=== PATIENT | female | born 1955 | race Caucasian/White ===

== ENCOUNTER 2018-09-02 13:43 | Inpatient (IN) | payer OTHER ==
[~2018-09-02] VITALS: Ht 157.5 cm; Wt 68.0 kg
== END 2018-10-04 20:05 | disposition home or self-care (01) | DRG 330 ==
LOC: SURH 10-01 07:30 → O/R 10-01 08:30 → SURH 10-01 10:30
PROVIDERS: ADMIT Colon & Rectal Surgery
PROC: 07TC4ZZ Resection of Pelvis Lymphatic, Percutaneous Endoscopic Approach (ICD-10-PCS; 2018-10-01)
PROC: 0D1B4Z4 Bypass Ileum to Cutaneous, Percutaneous Endoscopic Approach (ICD-10-PCS; 2018-10-01)
PROC: 4A12X4Z Monitoring of Cardiac Electrical Activity, External Approach (ICD-10-PCS; 2018-10-01)
PROC: 0DTN4ZZ Resection of Sigmoid Colon, Percutaneous Endoscopic Approach (ICD-10-PCS; principal; 2018-10-01 10:30)
DX: C19 Malignant neoplasm of rectosigmoid junction (principal); D62 Acute posthemorrhagic anemia; G47.33 Obstructive sleep apnea (adult) (pediatric); R33.8 Other retention of urine; Z88.0 Allergy status to penicillin

== ENCOUNTER 2019-03-16 11:24 | Emergency (ER) | payer OTHER ==
[~2019-03-16] VITALS: Ht 157.5 cm; Wt 63.5 kg
[2019-03-16] MEDS ORDERED: PANTOPRAZOLE SO40 MG (11:33)
[2019-03-16] MEDS ORDERED: CARAFATE1 GM (11:33)
== END 2019-03-16 18:32 | disposition home or self-care (01) ==
LOC: ER 11:24
DX: K60.4 Rectal fistula (principal); R10.84 Generalized abdominal pain; Z93.2 Ileostomy status

== ENCOUNTER → 2019-11-28 | Day surgery (SDC) | payer OTHER ==
[~2019-11-28] MED LIST: CARAFATE1 GM; PANTOPRAZOLE SO40 MG
== END | disposition home or self-care (01) ==
LOC: ADM 10-14 15:15 → AMB-ENDOS 11-25 15:15
DX: K62.4 Stenosis of anus and rectum (principal); C20 Malignant neoplasm of rectum; K63.89 Other specified diseases of intestine

== ENCOUNTER 2020-07-14 05:48 | Inpatient (IN) | payer OTHER ==
[~2020-07-14] VITALS: Ht 157.5 cm; Wt 54.0 kg
[2020-07-16] MEDS ORDERED: OXYC1TAB9 PO (15:41)
[2020-07-16] MEDS ORDERED: IMODIUM A-D2 MG PO (15:44)
[2020-07-17] MEDS ORDERED: PEPCID40 MG (15:26)
[2020-07-17] MEDS ORDERED: PRILOSEC OTC20 MG (15:26)
== END 2020-07-16 17:48 | disposition home or self-care (01) | DRG 331 ==
LOC: ER 05:48 → SURH 14:18
PROVIDERS: ADMIT Colon & Rectal Surgery; ATTEND Colon & Rectal Surgery
PROC: 0D1B4Z4 Bypass Ileum to Cutaneous, Percutaneous Endoscopic Approach (ICD-10-PCS; principal; 2020-07-14 16:15)
DX: K62.4 Stenosis of anus and rectum (principal); E86.0 Dehydration; G47.33 Obstructive sleep apnea (adult) (pediatric)

== ENCOUNTER 2020-07-17 14:48 | Emergency (ER) | payer OTHER ==
[~2020-07-17] VITALS: Ht 157.5 cm; Wt 54.0 kg
[~2020-07-17 14:48] MED LIST changes: +IMODIUM A-D2 MG PO; +OXYC1TAB9 PO
[2020-07-17] MEDS ORDERED: PRILOSEC OTC20 MG (15:26)
[2020-07-17] MEDS ORDERED: PEPCID40 MG (15:26)
== END 2020-07-19 14:11 | disposition home or self-care (01) ==
LOC: ER 14:48
DX: K94.19 Other complications of enterostomy (principal); K56.690 Other partial intestinal obstruction; R10.11 Right upper quadrant pain; Y83.8 Other surgical procedures as the cause of abnormal reaction of the patient, or of later complication, without mention of misadventure at the time of the procedure; Z03.818 Encounter for observation for suspected exposure to other biological agents ruled out
CPT/HCPCS: 74177; 93005; Q9965

== ENCOUNTER 2020-11-06 12:12 | Emergency (ER) | payer OTHER ==
[~2020-11-06] VITALS: Ht 157.5 cm; Wt 59.0 kg
[~2020-11-06 12:12] MED LIST changes: +PEPCID40 MG; +PRILOSEC OTC20 MG
== END 2020-11-06 16:27 | disposition home or self-care (01) ==
LOC: ER 12:12
DX: R20.8 Other disturbances of skin sensation (principal); R21 Rash and other nonspecific skin eruption; L03.311 Cellulitis of abdominal wall; K94.09 Other complications of colostomy